=== PATIENT | male | born 1950 | race Caucasian/White ===

== ENCOUNTER → 2019-12-26 13:12 | Outpatient (CLI) | payer MEDICARE, OTHER, SELFPAY ==
--- NOTE | 2019-12-26 13:22 | DI.CT.S_ITS ---
PROCEDURE: CT ABDOMEN PELVIS WO/W CON INDICATIONS: GROSS HEMATURIA TECHNIQUE: Optional 5 mm thick noncontrast images acquired from the diaphragm to the symphysis pubis. After the administration of intravenous contrast, 5 mm thick images acquired from the diaphragm to the symphysis pubis after a 10-minute delay. 2 mm thick coronal and sagittal reformats were then performed of the kidneys and ureters. For radiation dose reduction, the following was used: automated exposure control, adjustment of mA and/or kV according to patient size. COMPARISON: None. FINDINGS: Image quality: Excellent. Lung bases: Lung bases are clear. Heart size is normal. Small hiatal hernia. Urinary system: Both kidneys are normal in size, without hydronephrosis or nephrolithiasis on pre-contrast images. There is an exophytic upper pole right renal cyst measuring 7.6 cm. No perinephric fat stranding. There is normal bilateral renal enhancement. Renal calyces appear normal in morphology when filled with contrast. Opacified portions of both ureters demonstrate normal caliber. Bladder wall demonstrates trace subtle diffuse thickening and minor perivesicular inflammation. No calcified bladder stones. The prostate gland is moderately enlarged with several coarse calcifications. Other solid organs: Liver is normal in size and enhancement. Gallbladder is normal . Biliary system is non dilated. Pancreas enhances normally. Spleen is normal in size and enhancement. No adrenal nodules. Peritoneum and bowel: Bowel loops demonstrate normal wall thickness and caliber. Sigmoid colon diverticulosis. There is trace perisigmoid fat stranding. No free fluid or air. Nodes and vessels: No retroperitoneal or mesenteric adenopathy by size criteria. Aorta and inferior vena cava are normal in size. Mild abdominal aortic atherosclerotic calcification. Abdominal wall: No ventral hernias. Pelvis: No pathologic free pelvic fluid. No inguinal hernias or adenopathy. Bones: No suspicious bony lesions there are severe degenerative changes in the right hip joint and moderate degenerative disc and endplate changes throughout the spine. L5 pars defects resulting in grade 1 anterolisthesis.. No vertebral body compression fractures. IMPRESSION: 1. Diverticulosis with changes suggestive of mild sigmoid diverticulitis. This may cause a reactive cystitis. No fistula. 2. Mild, nonspecific perivesicular inflammation and wall thickening. 3. No evidence of obstructive uropathy or calcifications. 4. Moderate prostatomegaly. 5. 7.6 cm right upper pole renal cyst. Dictated by: Lizzie Sanz M.D. on 12/26/2019 at 17:26 Approved by: Lizzie Sanz M.D. on 12/26/2019 at 17:33
== END ==
PROVIDERS: Family Provider Family Medicine; PCP Family Medicine; Referring Provider Urology; Visit Provider Urology
DX: K57.90 Diverticulosis of intestine, part unspecified, without perforation or abscess without bleeding (principal); N30.91 Cystitis, unspecified with hematuria; N40.0 Benign prostatic hyperplasia without lower urinary tract symptoms; N28.1 Cyst of kidney, acquired
CPT/HCPCS: 74178; Q9967